=== PATIENT | female | born 1935 | race Caucasian/White ===

== ENCOUNTER → 2017-10-19 | Outpatient (CLI) | payer MEDICARE, BC | END | disposition home or self-care (01) | LOC: RAD 14:49 | DX: M43.17 Spondylolisthesis, lumbosacral region (principal); M51.37 Other intervertebral disc degeneration, lumbosacral region; M17.0 Bilateral primary osteoarthritis of knee; M16.0 Bilateral primary osteoarthritis of hip | CPT/HCPCS: 72020; 73501; 73565 ==

== ENCOUNTER → 2017-10-21 | Outpatient (CLI) | payer MEDICARE, BC ==
[~2017-10-21] MED LIST: BUPIVACAINE MPF 0.5% 10 ML VIAL for KCIC. IJ; CONTRAST GIVEN. MC; IOHEXOL 300 MG/ML 50 ML VIAL. INT ART; LIDOCAINE 1% Multi-Dose 20 ML VIAL. ID; methylPREDNISolone ACETATE 40 MG/ML VIAL. INT ART
== END | disposition home or self-care (01) ==
LOC: KCIC 12:10
DX: M16.12 Unilateral primary osteoarthritis, left hip (principal); G89.29 Other chronic pain; Z79.82 Long term (current) use of aspirin; Z79.899 Other long term (current) drug therapy; Z88.2 Allergy status to sulfonamides; Z88.6 Allergy status to analgesic agent; Z88.5 Allergy status to narcotic agent; Z88.8 Allergy status to other drugs, medicaments and biological substances; Z88.1 Allergy status to other antibiotic agents; M51.37 Other intervertebral disc degeneration, lumbosacral region; M43.17 Spondylolisthesis, lumbosacral region; M17.0 Bilateral primary osteoarthritis of knee
CPT/HCPCS: 20610; 77002

== ENCOUNTER → 2018-06-09 | Outpatient (CLI) | payer MEDICARE, BC ==
[~2018-06-09] MED LIST changes: +ALPR0.5T PO; +ASPI-482 PO; +BENA20TA4 PO; +BUPIVACAINE MPF 0.25% 10 ML VIAL. IJ ONE; -BUPIVACAINE MPF 0.5% 10 ML VIAL for KCIC. IJ; +BYSTOLIC20 MG PO; +CALC-112 PO; +CHLO25TA10 PO; +CHOL10003 PO; -CONTRAST GIVEN. MC; +CONTRAST GIVEN. MC PRN; +FLAX100031 PO; +IOHEXOL 300 MG/ML 50 ML VIAL. IJ ONE; -IOHEXOL 300 MG/ML 50 ML VIAL. INT ART; -LIDOCAINE 1% Multi-Dose 20 ML VIAL. ID; +OXYB5TAB7 PO; -methylPREDNISolone ACETATE 40 MG/ML VIAL. INT ART; +methylPREDNISolone ACETATE 80 MG/ML VIAL. INJ ONE
--- NOTE | 2018-06-09 15:05 | RAD ---
Fluoroscopically guided left hip joint injection, 06/09/2018: History: Left hip arthritis, pain Under local anesthesia, aseptic conditions and fluoroscopic guidance a 22-gauge spinal needle was passed into the left hip joint via an anterior approach. A small amount of iodinated contrast material was injected to confirm intra-articular positioning following which 80 mg of Depo-Medrol mixed with 4 cc of 0.5% Marcaine was injected into the joint as requested. The spinal needle was then removed and hemostasis obtained. 0.6 minutes of fluoroscopy time was utilized. One fluoroscopic spot image was recorded. The patient tolerated the procedure well and left the department in good condition.
== END | disposition home or self-care (01) ==
LOC: RAD 13:39
PROVIDERS: ATTEND Physical Medicine & Rehabilitation
DX: M16.12 Unilateral primary osteoarthritis, left hip (principal); Z88.2 Allergy status to sulfonamides; Z88.1 Allergy status to other antibiotic agents; Z88.6 Allergy status to analgesic agent; Z88.8 Allergy status to other drugs, medicaments and biological substances
CPT/HCPCS: 20610; 77002; J1040; J3490; Q9967